=== PATIENT | female | born 1975 | race Caucasian/White ===

== ENCOUNTER 2018-10-09 05:43 | Day surgery (SDC) | payer OTHER ==
[2018-10-09] MEDS ORDERED: ceFAZolin 2 GM/DEXTROSE 100 ML IV ONE (05:52)
[2018-10-09] MEDS ORDERED: LR 1,000 ML IV ONE (05:53)
[2018-10-09] MEDS ORDERED: BUPIVACAINE 0.5% 30 ML SDV ONE (07:08)
[2018-10-09] MEDS ORDERED: PROPOFOL/EMULSION 500 MG/50 ML BOTTLE IV ONE (07:11)
[2018-10-09] MEDS ORDERED: fentaNYL 100 MCG/2 ML INJ ONE (07:11)
[2018-10-09] MEDS ORDERED: NA BICARBONATE 50 MEQ/50 ML VIAL ONE (07:14)
[2018-10-09] MEDS ORDERED: LIDOCAINE 1% 300 MG/30 ML SDV ONE (07:14)
[2018-10-09] MEDS ORDERED: ONDANSETRON 4 MG/2 ML VIAL IVP PRN (08:09)
[2018-10-09] MEDS ORDERED: NALOXONE HCL 0.4 MG/ML INJ IVP PRN (08:09)
[2018-10-09] MEDS ORDERED: fentaNYL 100 MCG/2 ML INJ IVP PRN (08:09)
[2018-10-09] MEDS ORDERED: LR 500 ML IV PRN (08:09)
== END 2018-10-09 08:59 | disposition home or self-care (01) ==
DX: O9A.113 Malignant neoplasm complicating pregnancy, third trimester (principal); C43.61 Malignant melanoma of right upper limb, including shoulder